=== PATIENT | male | born 1955 | race Caucasian/White ===

== ENCOUNTER 2023-08-14 07:57 | Day surgery (SDC) | payer MEDICARE ==
[2023-08-14] VITALS (8 sets, daily range): BP systolic 90–103; BP diastolic 48–65; PULSE 60–69; RESP 12–16; TEMP 97.4; O2SAT 94–97
[~2023-08-14] VITALS: Ht 180.3 cm; Wt 94.6 kg
[2023-08-14] MEDS: cefazolin 2gm/D5W 100mL 100 ML IV ONE (08:20)
[2023-08-14 08:58] LABS: BASOPHILS % (AUTO) 0.8 % (0-1); EOSINOPHILS # (AUTO) 0.1 X10'3 (0-0.9); EOSINOPHILS % (AUTO) 1.3 % (0-6); HEMATOCRIT 48.5 % (42.0-52.0); HEMOGLOBIN 16.2 g/dl (14.0-17.9); LYMPHOCYTES # (AUTO) 1.6 X10'3 (1.1-4.8); LYMPHOCYTES % (AUTO) 32.7 % (21-51); MEAN CORPUSCULAR HEMOGLOBIN 30.8 PG (27.0-31.0); MEAN CORPUSCULAR HGB CONC 33.3 g/dL (33.0-36.5); MEAN CORPUSCULAR VOLUME 92.3 FL (78-98); MEAN PLATELET VOLUME 8.3 FL (7.4-10.4); MONOCYTES # (AUTO) 0.6 X10'3 (0-0.9); MONOCYTES % (AUTO) 11.5 % (2-12); NEUTROPHILS # (AUTO) 2.6 X10'3 (1.8-7.7); NEUTROPHILS % (AUTO) 53.7 % (42-75); PLATELET COUNT 190 X10'3 (140-440); RED BLOOD COUNT 5.25 X10'6 (4.70-6.10); RED CELL DISTRIBUTION WIDTH 14.3 % (11.5-14.5); WHITE BLOOD COUNT 4.8 X10'3 (4.5-11.0)
[2023-08-14 09:09] LABS: INR 1.1 INR
[2023-08-14] MEDS ORDERED: AMOX500C4 PO (09:09)
[2023-08-14] MEDS ORDERED: LEVO50TA8 PO (09:09)
[2023-08-14] MEDS ORDERED: CARV25TA2 PO (09:10)
[2023-08-14] MEDS ORDERED: SACU1TAB7 PO (09:10)
[2023-08-14] MEDS ORDERED: PRAV20TA4 PO (09:10)
[2023-08-14] MEDS ORDERED: SPIR25TA5 PO (09:10)
[2023-08-14] MEDS ORDERED: ZINC220T3 PO (09:10)
[2023-08-14] MEDS ORDERED: EMPA25TA PO (09:10)
[2023-08-14] MEDS ORDERED: APIX5TAB3 PO (09:10)
[2023-08-14] MEDS ORDERED: FURO40TA4 PO (09:10)
[2023-08-14] MEDS ORDERED: CHOL500061 PO (09:10)
[2023-08-14 09:13] LABS: ALBUMIN 3.8 G/DL (3.4-5.0); ANION GAP 10 (8-16); BLOOD UREA NITROGEN 14 MG/DL (7-18); BUN/CREATININE RATIO 15.7 (10.0-20.0); CALCIUM 8.5 MG/DL (8.5-10.1); CHLORIDE 106 MMOL/L (99-107); CREATININE 0.89 MG/DL (0.60-1.10); GLUCOSE 123 MG/DL (70-104); MAGNESIUM 2.1 MG/DL (1.5-2.4); POTASSIUM 3.9 MMOL/L (3.5-5.1); SODIUM 144 MMOL/L (135-145); TOTAL CARBON DIOXIDE 28.3 MMOL/L (24-32); eCRCL 83 ML/MIN; eGFR 85 ML/MIN
[2023-08-14 09:14] LABS: PROTHROMBIN TIME 11.6 SECONDS (9.0-12.0)
[2023-08-14] MEDS: VANCOMYCIN 1,500MG in NS 300ml IVPB IV ONE (09:15)
[2023-08-14] MEDS ORDERED: fentaNYL/PF 50MCG/1 ML 2ML syringe ONE (10:38)
[2023-08-14] MEDS ORDERED: midazolam 1 mg/ML 2ml injection ONE ×3 (10:38→12:48)
[2023-08-14] MEDS ORDERED: LIDOCAINE 2%/EPI 1:100,000 inj. Multi-dose 20 ML VIAL ONE (10:38)
[2023-08-14] MEDS ORDERED: vancomycin 1,000mg inj ONE (10:38)
[2023-08-14] MEDS ORDERED: iohexol 350 MG/ML 50ML vial IV ONE (12:12)
[2023-08-14] MEDS ORDERED: HYDROmorphone 1 mg/ml syringe ONE (12:37)
[2023-08-14] MEDS ORDERED: normal saline 1000ml 1,000 ML IV SCH (14:00)
== END 2023-08-14 15:45 | disposition home or self-care (01) ==
LOC: SSTAY O 07:57
PROVIDERS: ATTEND Internal Medicine Cardiovascular Disease
DX: Z45.02 Encounter for adjustment and management of automatic implantable cardiac defibrillator (principal); I42.0 Dilated cardiomyopathy; I11.0 Hypertensive heart disease with heart failure; I50.22 Chronic systolic (congestive) heart failure; E78.5 Hyperlipidemia, unspecified; I47.10 Supraventricular tachycardia, unspecified; E03.9 Hypothyroidism, unspecified; C07 Malignant neoplasm of parotid gland; Z79.899 Other long term (current) drug therapy; Z79.01 Long term (current) use of anticoagulants; Z98.890 Other specified postprocedural states
CPT/HCPCS: 33241; 33249; 36415; 71045; 80048; 83735; 85025; 85610; 93005; 99152; 99153; C1721; C1898; J1170; J2250; J3010; J3370; J7030; J7040; Q9967; 33216; 33218; 33263; A4565; A4620; A6258